=== PATIENT | female | born 1975 | race Caucasian/White ===

== ENCOUNTER 2017-11-13 20:52 | Emergency (ER) | payer MEDICAID ==
[~2017-11-13] VITALS: Ht 165.1 cm; Wt 68.0 kg
[~2017-11-13 20:52] MED LIST: AMPH20TA2 PO; ATEN50TA41 PO; OMEP-110 PO; ZIPR20CA2 PO
[2017-11-13 21:28] LABS: BASOPHILS # (AUTO) 0.05 x10^3/uL (0-0.1); BASOPHILS % (AUTO) 1 % (0-1); EOSINOPHILS # (AUTO) 0.16 x10^3/uL (0-0.4); EOSINOPHILS % (AUTO) 2 % (1-7); LYMPHOCYTES # (AUTO) 1.79 x10^3/uL (1-3.4); LYMPHOCYTES % (AUTO) 18 % (22-44); MD NO; MEAN CORPUSCULAR HEMOGLOBIN 25.4 pg (27.0-34.8); MEAN CORPUSCULAR VOLUME 74.7 fL (80-100); MEAN PLATELET VOLUME 8.2 fL (7.4-10.4); MONOCYTES # (AUTO) 0.25 x10^3/uL (0.2-0.8); MONOCYTES % (AUTO) 3 % (2-9); NEUTROPHILS % (AUTO) 77 % (42-75); PLATELET COUNT 278 x10^3/uL (130-400); RED BLOOD COUNT 4.55 x10^6/uL (3.82-5.3); RED CELL DISTRIBUTION WIDTH 14.5 % (9.6-15.2)
[2017-11-13] MEDS ORDERED: MORPHINE SULFATE 4 MG/ML, 1ML IVPush PRN (21:30)
[2017-11-13] MEDS ORDERED: ONDANSETRON 2MG/ML, 2ML IVPush ONE (21:30)
[2017-11-13] MEDS ORDERED: MORPHINE SULFATE 4 MG/ML, 1ML ONE (21:34)
[2017-11-13] MEDS ORDERED: ONDANSETRON 2MG/ML, 2ML ONE (21:34)
[2017-11-13 21:41] LABS: ALANINE AMINOTRANSFERASE 14 U/L (12-78); ALBUMIN 3.4 g/dL (3.4-5.0); ANION GAP 9 mmol/L (5-15); CALCIUM 8.1 mg/dL (8.5-10.1); CHLORIDE 108 mmol/L (98-107); CREATININE 0.83 mg/dL (0.55-1.02)
[2017-11-13 21:45] LABS: ALKALINE PHOSPHATASE 78 U/L (45-117); BILIRUBIN,TOTAL 0.5 mg/dL (0.2-1.0)
[2017-11-13 21:52] LABS: CULTURE INDICATED? NO; MICROSCOPIC AUTO
[2017-11-13] MEDS ORDERED: HYDROmorphone 2 MG/ML, 1ML ONE ×3 (22:15→23:52)
[2017-11-13] MEDS: HYDROmorphone 1 MG/ML, 1ML IVPush PRN ×2 (22:19→23:57)
[2017-11-13] MEDS ORDERED: OMNIPAQUE 350 MG/ML, 100ML BOTTLE ONE (23:31)
[2017-11-13 23:56] VITALS: BP 112/64
[2017-11-14] MEDS ORDERED: ONDANSETRON ODT 4 MG ONE (00:50)
== END 2017-11-14 00:59 | disposition home or self-care (01) ==
LOC: ED 22:02
DX: R10.30 Lower abdominal pain, unspecified (principal)
CPT/HCPCS: 36415; 74177; 76830; 80053; 81001; 83690; 84703; 85025; 96374; 96375; 96376; 99285; J1170; J2405; Q9967

== ENCOUNTER → 2018-01-20 | Outpatient (CLI) | payer MEDICAID | END | disposition home or self-care (01) | LOC: CFH 12:25 | PROVIDERS: ATTEND Obstetrics & Gynecology Gynecology | DX: N63.10 Unspecified lump in the right breast, unspecified quadrant (principal); N63.20 Unspecified lump in the left breast, unspecified quadrant; R92.2 Inconclusive mammogram; Z85.3 Personal history of malignant neoplasm of breast | CPT/HCPCS: 77066 ==

== ENCOUNTER 2019-02-08 11:39 | Outpatient (CLI) | payer MEDICAID | END 2019-02-08 23:59 | disposition home or self-care (01) | LOC: CFH 11:39 | PROVIDERS: ATTEND Obstetrics & Gynecology | DX: Z12.31 Encounter for screening mammogram for malignant neoplasm of breast (principal); N63.12 Unspecified lump in the right breast, upper inner quadrant; Z80.3 Family history of malignant neoplasm of breast | CPT/HCPCS: 77063; 77067 ==

== ENCOUNTER → 2019-02-27 | Outpatient (CLI) | payer MEDICAID | END | disposition home or self-care (01) | LOC: CFH 13:36 | PROVIDERS: ATTEND Obstetrics & Gynecology | DX: R92.8 Other abnormal and inconclusive findings on diagnostic imaging of breast (principal); Z80.3 Family history of malignant neoplasm of breast; Z88.8 Allergy status to other drugs, medicaments and biological substances | CPT/HCPCS: 77065 ==

== ENCOUNTER 2019-03-12 12:55 | Outpatient (CLI) | payer MEDICAID | END 2019-03-12 23:59 | disposition home or self-care (01) | LOC: CFH 12:55 | PROVIDERS: ATTEND Obstetrics & Gynecology | DX: N60.02 Solitary cyst of left breast (principal); N60.01 Solitary cyst of right breast; Z85.3 Personal history of malignant neoplasm of breast | CPT/HCPCS: 76641 ==

== ENCOUNTER 2019-08-29 00:26 | Emergency (ER) | payer MEDICAID ==
[~2019-08-29] VITALS: Ht 165.1 cm; Wt 72.5 kg
[2019-08-29 00:44] VITALS: BP 122/69
--- NOTE | 2019-08-29 01:11 | NUR ---
"WIERD RASH ON MY BREASTS" UNDERNEATH BREASTS. DIAGNOSED WITH YEAST RASH AND TREATED FROM HER PRIMARY. PT STATES NOW SHE HAS HIVES THAT STARTED 1 WEEK AGO. "NOW i HAVE GOTTEN SICK WITH ALL OF THIS" C/O COUGH THAT STARTED 1 WEEK AGO. HASNT SLEPT IN 2 DAYS. NO OVER THE COUNTER MEDICATIONS WORK.
== END 2019-08-29 02:54 | disposition home or self-care (01) ==
LOC: ED 02:02
DX: R05 Cough (principal); R21 Rash and other nonspecific skin eruption
CPT/HCPCS: 82962; 99283

== ENCOUNTER → 2020-08-27 | Outpatient (CLI) | payer MEDICAID | END | disposition home or self-care (01) | LOC: CFH 16:02 | PROVIDERS: ATTEND Obstetrics & Gynecology | DX: Z12.31 Encounter for screening mammogram for malignant neoplasm of breast (principal) | CPT/HCPCS: 77063; 77067 ==